=== PATIENT | female | born 1960 | race Caucasian/White ===

== ENCOUNTER → 2020-06-21 13:53 | Outpatient (CLI) | payer SELFPAY ==
--- NOTE | 2020-06-21 13:58 | CT_ITS ---
STUDY: CT CHEST WITHOUT CONTRAST REASON FOR EXAM: Female, 60 years old. LUNG NODULE RADIATION DOSAGE (If Supplied By Facility): CTDIvol = ( 23.55 ) mGy, DLP = ( 1295.39 ) mGycm TECHNIQUE: Transaxial imaging was performed without the administration of intravenous contrast material. Multiplanar coronal and sagittal images were reformatted. Individualized dose optimization techniques were used for this CT. COMPARISON: None. FINDINGS: There are scattered subpleural dominant noncalcified pulmonary nodules. For instance, there is a 6 mm noncalcified nodule along the right minor fissure on image 134 of series 4. Oval-shaped noncalcified nodule of the right major fissure measures 6 mm on image 144. There are minimal nodules of the left major fissure measuring 2-3 mm. No spiculated or suspicious pulmonary nodules identified. There is no demonstrated pleural abnormality. Normal heart and pericardium. Normal mediastinum. Normal hilar regions. Normal unenhanced pulmonary arteries. Normal aorta arch and descending thoracic aorta. Normal osseous structures. Subcentimeter low-density lesion in the left hepatic lobe likely represents a simple cyst. Benign, incidental finding; no specific imaging workup recommended according to current ACR guidelines. CT/Chest without Contrast IMPRESSION: 1. Right more than left pleural-based dominant nodules with smooth margins. Recommend follow-up chest CT according to F[employer] Society recommendations (CT scan in 3-6 months). Electronically Signed: Miguel Angel Lundberg MD ([facility]) at 11:24 EDT , Service support ,
== END ==
DX: R91.8 Other nonspecific abnormal finding of lung field (principal)
CPT/HCPCS: 71250

== ENCOUNTER → 2020-08-23 08:28 | Outpatient (CLI) | payer SELFPAY ==
--- NOTE | 2020-08-23 14:56 | PFTCOMP_ITS ---
COMPLETE PULMONARY FUNCTION TEST INTERPRETATION Brief HPI: Patient is a 60 year old female, currently under the care of Dr. Gomes, who presents to [facility] for complete pulmonary function tests secondary to diagnosis of persistent asthma. Respiratory therapist reports good effort and reproducible results. Interpretation: Forced expiration spirometry shows no large airways obstructive ventilatory defect with an FEV1 of 64% predicted. There is no significant bronchodilator response by strict ATS criteria. Spirograms are of good quality and plateau normally. The respiratory flow volume loop shows a normal pattern. Lung volumes by body plethysmography show a decreased total lung capacity at 4.46 L, 78% predicted. All other lung volumes are within normal limits. Diffusion capacity by carbon monoxide is normal at 98% predicted. The airway resistance is normal. No previous pulmonary function tests were available for review. Impression: Mild restrictive ventilatory defect with preserved diffusion capacity in a pattern consistent with musculoskeletal limitation
== END ==
DX: J45.50 Severe persistent asthma, uncomplicated (principal)
CPT/HCPCS: 94060; 94726; 94729